=== PATIENT | male | born 1960 | race Caucasian/White ===

== ENCOUNTER → 2019-04-04 | Outpatient (CLI) | payer BC ==
--- NOTE | 2019-04-07 08:08 | MR ---
CLINICAL HISTORY: 58 year-old 235 pound male with pain right shoulder and right arm/hand weakness. Patient had "cortisone shots" 27 March that "helped the pain in right shoulder". Abnormal plain films cervical spine ([facility]). SCAN TECHNIQUE: Sagittal T1/T2/STIR and unenhanced axial MR images of the cervical spine and first 4 thoracic vertebra obtained with the patient lying supine on the [place] [address] [employer] [place], [place]. All data archived in the PACS system for storage, reformatting axial/sagittal/coronal planes and study. INTERPRETATION: Abnormal. 1. Signs of chronic multilevel disc degeneration, i.e., desiccation/flattening nucleus pulposus; anterior (nonclinical) disc herniation; hypertrophic marginal spondylosis several levels mid/lower cervical spine and upper thoracic spine at the T1-2 level. 2. No sign of pathologic skeletal lesion, cervical fracture or spondylolisthesis. Schmorl's node distal endplate T5 vertebral body. 3. Capacious bony spinal canal volume and the unenhanced cervical spinal cord unremarkable except where it is slightly, asymmetrically effaced, anteriorly, left of midline at both C5-6 and C6-C7 levels by small disc-osteophyte complex. 4. Similar disc-osteophyte complex encroaching paracentrally on the right C5-6 level. Close clinical correlation please. 5. No extruded "free" intracanalicular disc fragment. No surgical disc herniation. 6. No intracanalicular soft tissue tumor mass. 7. Subtle asymmetric disc "bulge" last osteophyte paracentrally, on the right, at the T1-2 level. CONCLUSION: Multilevel disc degeneration. Asymmetric disc-osteophyte complexes C5-6 and C6-7 levels (see above).
== END ==
LOC: DL.MRI 12:36
PROVIDERS: ATTEND Family Medicine
DX: R20.0 Anesthesia of skin (principal); R29.898 Other symptoms and signs involving the musculoskeletal system; M25.511 Pain in right shoulder; M50.30 Other cervical disc degeneration, unspecified cervical region; M25.78 Osteophyte, vertebrae
CPT/HCPCS: 72141